=== PATIENT | male | born 1995 | race African-American/Black ===

== ENCOUNTER 2016-09-30 09:51 | Emergency (ER) | payer MEDICAID, OTHER ==
[~2016-09-30] VITALS: Ht 180.3 cm; Wt 72.6 kg
[~2016-09-30 09:51] MED LIST: HYDROCODON-ACE1 EA15 ORAL
[2016-09-30 10:36] VITALS: BP 90/61
[2016-09-30] MEDS ORDERED: NKM (10:36)
[2016-09-30 11:44] LABS: APPEARANCE,URINE SLIGHTLY CLOUDY; KETONES,URINE 4+ (NEGATIVE); LEUKOCYTE ESTERASE ,URINE 1+ (NEGATIVE); NITRITE,URINE NEGATIVE (NEGATIVE); PH,URINE 6 (4.5-8.0); PROTEIN,URINE 4+ (NEGATIVE); UROBILINOGEN,URINE 1 MG/DL (0.0-1.0)
[2016-09-30 11:45] LABS: BASOPHILS % (AUTO) 1.1 % (0.0-2.0); LYMPHOCYTES % (AUTO) 6.1 % (20.0-45.0); MEAN CORPUSCULAR HEMOGLOBIN 30.9 PG (27.0-31.0); MEAN CORPUSCULAR HGB CONC 33.7 G/DL (32.0-36.0); MEAN CORPUSCULAR VOLUME 91 FL (80-99); MONOCYTES % (AUTO) 9.3 % (1.0-10.0); NEUTROPHILS % (AUTO) 83.5 % (45.0-75.0); PLATELET COUNT 179 K/UL (150-450); RED BLOOD COUNT 4.98 M/UL (4.70-6.10); RED CELL DISTRIBUTION WIDTH 12.2 % (11.6-14.8); WHITE BLOOD COUNT 7.7 K/UL (4.8-10.8)
[2016-09-30 11:55] LABS: ALANINE AMINOTRANSFERASE 13 U/L (3-41); ALBUMIN/GLOBULIN RATIO 1.8 (1.0-2.7); ANION GAP 19 (5-15); ASPARTATE AMINO TRANSFERASE 17 U/L (5-40); CALCIUM 10.2 mg/dL (8.6-10.2); CARBON DIOXIDE 24 mEQ/L (20-30); CHLORIDE 95 mEQ/L (98-107); CREATININE 1.1 mg/dL (0.7-1.2); GLOMERULAR FILTRATION RATE > 60 mL/min (>60); HEMOLYSIS 4; POTASSIUM 3.8 mEQ/L (3.4-4.9); SODIUM 138 mEQ/L (135-145); TOTAL PROTEIN 7.8 g/dL (6.6-8.7)
[2016-09-30 11:59] LABS: BACTERIA,URINE FEW /HPF; SQUAMOUS EPITHELIAL CELL,UR OCCASIONAL /LPF (NONE/OCC)
[2016-09-30 12:00] LABS: CALCIUM OXALATE CRYSTALS,UR OCCASIONAL /LPF; ICTOTEST NEGATIVE; MUCUS,URINE MODERATE /LPF (NONE/OCC)
[2016-09-30] MEDS ORDERED: Loperamide 2mg cap ORAL ONE (12:15)
[2016-09-30] MEDS ORDERED: KEFLEX500 MG ORAL (12:35)
[2016-09-30] MEDS ORDERED: LOPERAMIDE2 MG PO (12:35)
[2016-09-30] MEDS ORDERED: ZOFRAN4 MG ORAL (12:35)
[2016-09-30] MEDS ORDERED: Ketorolac 30mg Inj ONE (12:43)
[2016-09-30] MEDS ORDERED: Ketorolac 30mg Inj IV ONE (12:45)
[2016-09-30 12:52] VITALS: BP 122/62
--- NOTE | 2016-10-01 12:57 | Diagnostic Imaging Report ---
Indication: SOB Technique: One view of the chest Comparison: none Findings: Lungs and pleural spaces are clear. Heart size is normal. Impression: No acute process
--- NOTE | 2016-10-02 13:45 | Emergency Room Report ---
History of Present Illness General Chief Complaint: Flu Like Symptoms Source: Patient Present Illness HPI Patient is a 20-year-old male who presented after increased generalized body aches as well as nausea. Patient had several sick contacts at home. Patient daughter had been sick with a fever several days ago. Patient had increased nasal congestion and as well as a nonproductive cough. The patient been having some diarrhea. This was nonbloody. Allergies: Coded Allergies: NO KNOWN ALLERGIES (Unverified Allergy, Unknown, 08/16/15) Patient History Past Medical History: see triage record Reviewed Nursing Documentation: PMH: Agreed, PSxH: Agreed Nursing Documentation-PMH Past Medical History: No Stated History Review of Systems All Other Systems: negative except mentioned in HPI Physical Exam Vital Signs Date Time Temp Pulse Resp B/P Pulse Ox O2 Delivery O2 Flow Rate FiO2 09/30/16 10:33 98.1 89 16 90/61 97 Room Air Sp02 EP Interpretation: reviewed, normal General Appearance: normal inspection, alert, GCS 15, non-toxic, mild distress Head: atraumatic ENT: normal ENT inspection, hearing grossly normal, normal voice Neck: normal inspection, full range of motion, supple, no bony tend Respiratory: normal inspection, lungs clear, normal breath sounds, no respiratory distress, no retraction, no wheezing Cardiovascular #1: regular rate, rhythm, no edema Gastrointestinal: normal inspection, normal bowel sounds, non tender, soft, no guarding, no hernia Genitourinary: no CVA tenderness Musculoskeletal: normal inspection, back normal, normal range of motion Neurologic: normal inspection, alert, oriented x3, responsive, record tabulating clerk III-XII nml as tested, speech normal Psychiatric: normal inspection, judgement/insight normal, mood/affect normal Skin: no rash Medical Decision Making Diagnostic Impression: Primary Impression: Dehydration Additional Impression: Viral syndrome ER Course Patient presented for abdominal pain. Differential diagnoses included ischemic bowel, appendicitis, perforated viscus, abdominal aortic aneurysm, inferior myocardial infarction, viral gastroenteritis Because of complexity of patient's case laboratory testing and imaging studies were ordered. The patient was noted to be mildly dehydrated was started on IV fluids. The patient was given Zofran for nausea. Patient was given Toradol for pain. The patient had improvement of symptoms. The patient is advised to follow up with primary care doctor in 1-2 days. Patient is advised to return if any worsening condition or if any changes in status that are concerning. Labs Test 2/13/17 11:24 White Blood Count 7.7 K/UL (4.8-10.8) Red Blood Count 4.98 M/UL (4.70-6.10) Hemoglobin 15.4 G/DL (14.2-18.0) Hematocrit 45.6 % (42.0-52.0) Mean Corpuscular Volume 91 FL (80-99) Mean Corpuscular Hemoglobin 30.9 PG (27.0-31.0) Mean Corpuscular Hemoglobin Concent 33.7 G/DL (32.0-36.0) Red Cell Distribution Width 12.2 % (11.6-14.8) Platelet Count 179 K/UL (150-450) Mean Platelet Volume 8.0 FL (6.5-10.1) Neutrophils (%) (Auto) 83.5 % (45.0-75.0) Lymphocytes (%) (Auto) 6.1 % (20.0-45.0) Monocytes (%) (Auto) 9.3 % (1.0-10.0) Eosinophils (%) (Auto) 0.0 % (0.0-3.0) Basophils (%) (Auto) 1.1 % (0.0-2.0) Urine Color Yellow Urine Appearance Slightly cloudy Urine pH 6 (4.5-8.0) Urine Specific [place] 1.025 (1.005-1.035) Urine Protein 4+ (NEGATIVE) Urine Glucose (UA) Negative (NEGATIVE) Urine Ketones 4+ (NEGATIVE) Urine Occult Blood 2+ (NEGATIVE) Urine Nitrite Negative (NEGATIVE) Urine Bilirubin 1+ (NEGATIVE) Urine Ictotest Negative Urine Urobilinogen 1 MG/DL (0.0-1.0) Urine Leukocyte Esterase 1+ (NEGATIVE) Urine RBC 2-4 /HPF (0 - 0) Urine WBC 5-10 /HPF (0 - 0) Urine Squamous Epithelial Cells Occasional /LPF Urine Transitional Epithelial Cells /LPF (NONE) Urine Calcium Oxalate Crystals Occasional /LPF (NONE) Urine Bacteria Few /HPF (NONE) Urine Mucus Moderate /LPF (NONE/OCC) Sodium Level 138 mEQ/L (135-145) Potassium Level 3.8 mEQ/L (3.4-4.9) Chloride Level 95 mEQ/L (98-107) Carbon Dioxide Level 24 mEQ/L (20-30) Anion Gap 19 (5-15) Blood Urea Nitrogen 7 mg/dL (7-23) Creatinine 1.1 mg/dL (0.7-1.2) Estimat Glomerular Filtration Rate > 60 mL/min (>60) Glucose Level 95 mg/dL (74-106) Calcium Level 10.2 mg/dL (8.6-10.2) Total Bilirubin 0.7 mg/dL (0.0-1.2) Aspartate Amino Transf (AST/SGOT) 17 U/L (5-40) Alanine Aminotransferase (ALT/SGPT) 13 U/L (3-41) Alkaline Phosphatase 48 U/L (40-129) Total Protein 7.8 g/dL (6.6-8.7) Albumin 5.1 g/dL (3.5-5.2) Globulin 2.7 g/dL Albumin/Globulin Ratio 1.8 (1.0-2.7) Last Vital Signs Date Time Temp Pulse Resp B/P Pulse Ox O2 Delivery O2 Flow Rate FiO2 09/30/16 12:52 91 16 122/62 100 Room Air 09/30/16 12:50 98.1 Status: improved Disposition: HOME, SELF-CARE Condition: Stable Scripts Loperamide Hcl (LOPERAMIDE) 2 Mg Capsule 2 MG PO Q12HR, #14 CAP Prov: Subhash Allan 09/30/16 Ondansetron (Zofran) 4 Mg Tablet 4 MG ORAL Q6H Y for Nausea & Vomiting, #14 TAB 0 Refills Prov: Subhash Allan 09/30/16 Cephalexin* (KEFLEX*) 500 Mg Capsule 500 MG ORAL Q6H, #28 CAP 0 Refills Prov: Subhash Allan 09/30/16 Patient Instructions: Dehydration, Adult Subhash Allan Oct 02, 2016 13:45
== END 2016-09-30 12:52 | disposition home or self-care (01) ==
LOC: EMR 11:05
DX: E86.0 Dehydration (principal); B34.9 Viral infection, unspecified; R11.0 Nausea
CPT/HCPCS: 36415; 71010; 80053; 81001; 85025; 96374; 96375; 99284; J1885; J2405